=== PATIENT | female | born 1955 | race Caucasian/White ===

== ENCOUNTER → 2021-03-02 | Outpatient (CLI) | payer OTHER ==
[~2021-03-02] MED LIST: CLONIDINE HCL0.1 MG PO; DYMISTA NASAL S23 GM INH; ELIQUIS2.5 MG PO; ESTRADIOL2 MG PO; FLEXERIL 10 MG10 MG PO; GLUCOPHAGE 500500 MG PO; LIPITOR TAB 2020 MG PO; MIRALAX17 GM PO; MULTIVITAMINS1 EAC1 PO; NORVASC 5 MG TAB5 MG PO; RESTASIS 0.05%1 EACH OD; SYNTHROID88 MCG PO; ULTRAM50 MG PO; ZITHROMAX TRI-500 MG PO
== END ==
LOC: EXRD 14:44
DX: M79.672 Pain in left foot (principal)
CPT/HCPCS: 73630